=== PATIENT | female | born 1965 | race Caucasian/White ===

== ENCOUNTER 2016-12-09 11:50 | Emergency (ER) | payer OTHER ==
[~2016-12-09] VITALS: Ht 170.2 cm; Wt 90.7 kg
--- NOTE | 2016-12-09 12:05 | ED CARDIAC/CP/PALPITATIONS ---
History of Present Illness General Chief Complaint: Chest Pain Stated Complaint: CP Source: patient Exam Limitations: no limitations Vital Signs & Intake/Output Vital Signs & Intake/Output Vital Signs Date Time Temp Pulse Resp B/P Pulse O2 O2 Flow FiO2 Ox Delivery Rate 12/09 1706 97.4 70 18 122/64 98 Room Air Room Air 12/09 1604 97.1 71 18 118/62 98 12/09 1425 98.2 74 18 129/63 99 Room Air ED Intake and Output 12/10 0000 12/09 1200 Intake Total 0 Output Total 800 Balance -800 Intake, Oral 0 Output, Urine 800 Patient 200 lb Weight Allergies Coded Allergies: Penicillins (RASH 12/09/16) Reconcile Medications Cyclobenzaprine HCl 10 MG TABLET 1 TAB PO TID PRN SPASM Naproxen 500 MG TABLET 1 TAB PO BID PRN PAIN TAKE WITH FOOD Triage Note: PT TO ED C/O SUDDEN ONSET OF LEFT BACK AND LEFT CHEST PAIN 45 MINS AGO WHILE EATING BREAKFAST. STATES IT NOW RADIATES TO HER LEFT ARM. DENIES N/V/D. PT APPEARS ANXIOUS. NO SOB OR DIFF BREATHING NOTED. RA SATS 99%. DESCRIBES PAIN 10/10 SHARP AND SHOOTING. EKG DONE. PT TAKEN TO ROOM 12 VIA STRETCHER. Triage Nurses Notes Reviewed? yes Onset: Afternoon Duration: hour(s): (1) Timing: single episode today Quality/Severity: sharp, stabbing Location: left back Radiation: left chest Activities at Onset: STANDING IN THE KITCHEN Associated Symptoms: DIFFICULTY TAKING IN A DEEP BREATH HPI: This is a 50-year-old female with no past medical history other than previous hysterectomy presents to eat with sudden onset of severe left-sided beating radiating to her left chest. She states she was just going to but her toes and when she turned she felt severe sudden onset of pain. No nausea or vomiting. No diaphoresis. No palpitations. No history of similar symptoms. She's not been feeling ill recently. Denies any history of hypertension diabetes or high cholesterol. She is a nonsmoker nondrinker. No positive family history for coronary disease. She is status post hysterectomy on no hormone replacement. Recent prolonged travel or immobility. Past History Travel History Traveled to [place] past 21 day No Medical History Any Pertinent Medical History? none Surgical History Surgical History: hysterectomy, BLADDER SLING Psychosocial History What is your primary language Afghan Tobacco Use: Never used ETOH Use: denies use Illicit Drug Use: denies illicit drug use Family History Hx Contributory? No Review of Systems Review of Systems Constitutional: Denies: chills, fever. EENTM: Reports: no symptoms. Respiratory: Denies: cough, short of breath, sputum production. Cardiovascular: Reports: chest pain. Denies: palpitations. GI: Denies: abdominal pain, nausea, vomiting. Genitourinary: Reports: no symptoms. Musculoskeletal: Reports: back pain. Skin: Reports: no symptoms. Neurological/Psychological: Reports: no symptoms. Hematologic/Endocrine: Denies: bruising, bleeding, polyuria, polydipsia. Immunologic/Allergic: Reports: no symptoms. All Other Systems: Reviewed and Negative Physical Exam Physical Exam General Appearance: well developed/nourished, alert, awake, anxious, moderate distress Head: atraumatic, normal appearance Eyes: Bilateral: normal appearance, PERRL, EOMI. Ears, Nose, Throat: normal pharynx, normal ENT inspection Neck: normal inspection, supple, full range of motion Respiratory: normal breath sounds, chest non-tender, no respiratory distress Cardiovascular: regular rate/rhythm Peripheral Pulses: 2+ radial (R), 2+ radial (L) Gastrointestinal: normal bowel sounds, soft, non-tender Back: normal inspection, normal range of motion, TENDER OVER LEFT LOWER CHEST WALL Extremities: normal inspection, normal capillary refill, normal range of motion, no edema Neurologic/Psych: no motor/sensory deficits, awake, alert, oriented x 3, normal gait Skin: intact, normal color, warm/dry Core Measures ACS in differential dx? No Severe Sepsis Present: No Septic Shock Present: No Progress Differential Diagnosis: AMI, musculoskeletal pain, myocarditis, pericarditis, pneumonia, pneumothorax, pulmonary embolism Plan of Care: Orders Procedure Date/time Status Regular Diet 12/09 D Active TROPONIN LEVEL 12/09 1600 Complete EKG 12/09 1600 Active URINALYSIS 12/09 1418 Complete Laboratory Tests 12/09/16 1600: Troponin I < 0.01 12/09/16 1430: Urine Color STRAW, Urine Clarity CLEAR, Urine pH 6.5, Ur Specific [place] <= 1.005, Urine Protein NEG, Urine Ketones NEG, Urine Nitrite NEG, Urine Bilirubin NEG, Urine Urobilinogen 0.2, Ur Leukocyte Esterase NEG, Ur Microscopic EXAM NOT REQUIRED, Urine Hemoglobin NEG, Urine Glucose NEG EKG, TELE MONITOR, LABS, CXR ORDERED. IV TORADOL ORDERED. SUDDEN ONSET OF WORSENING LEFT CHEST PAIN, HR IN 120'S, PATIENT CRYING IN PAIN. PATIENT DIRECTLY FOR ANGIOGRAM TO RULE OUT DISSECTION. IV ZOFRAN, IV VALIUM ORDERED. ANGIOGRAM NEGATIVE FOR DISSECTION. PATIENT FEELING MUCH BETTER AFTER IV VALIUM. REPEAT EKG/TROPONIN ORDERED FOR 4 PM. (JESSICA OCONNOR,ALEXANDER) Diagnostic Imaging: Viewed by Me: Radiology Read, CT Scan. Discussed w/RAD: Radiology Read, CT Scan. Radiology Impression: EXAM TYPE: RAD - XRY-CHEST XRAY, PA AND LATERAL EXAMINATION: XR CHEST CLINICAL INFORMATION: Left-sided chest pain. COMPARISON: None. TECHNIQUE: PA and lateral views of the chest were obtained. FINDINGS: No focal consolidation, pulmonary edema, or pleural effusion. Normal cardiomediastinal silhouette. IMPRESSION: No acute cardiopulmonary findings. 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 Take the Naprosyn and Flexeril as directed. Prescriptions are [facility]. Return to the ER for any changing or worsening symptoms. Departure Forms: Customer Survey General Discharge Information Prescriptions: Current Visit Scripts Naproxen 1 TAB PO BID PRN PAIN #30 TAB TAKE WITH FOOD Cyclobenzaprine HCl 1 TAB PO TID PRN SPASM #20 TAB Critical Care Note Critical Care Note Critical Care Time: non-applicable
--- NOTE | 2016-12-09 13:08 | RADIOLOGY REPORT ---
EXAMINATION: XR CHEST CLINICAL INFORMATION: Left-sided chest pain. COMPARISON: None. TECHNIQUE: PA and lateral views of the chest were obtained. FINDINGS: No focal consolidation, pulmonary edema, or pleural effusion. Normal cardiomediastinal silhouette. IMPRESSION: No acute cardiopulmonary findings.
[2016-12-09 13:34] LABS: ABSOLUTE BASOPHIL COUNT 0 /CUMM (0.0-0.2); ABSOLUTE EOSINOPHIL COUNT 0.1 /CUMM (0.0-0.7); ABSOLUTE LYMPH COUNT 1.5 /CUMM (1.2-3.4); ABSOLUTE MONOCYTE COUNT 0.5 /CUMM (0.10-0.60); BASOPHIL % 0.5 % (0.0-2.0); GRANULOCYTE % 70.2 % (42.2-75.2); HEMATOCRIT 41.8 % (37-47); MEAN CORPUSCULAR HGB 29.1 PG (27.0-31.0); MEAN CORPUSCULAR HGB CONC 33.7 G/DL (33.0-37.0); MEAN CORPUSCULAR VOLUME 86.6 FL (81.0-99.0); MEAN PLATELET VOLUME 7.9 FL (7.4-10.4); PLATELET COUNT 265 /CUMM (130-400); RBC DISTRIBUTION WIDTH 13.4 % (11.5-14.5); RED BLOOD CELL CT 4.82 /CUMM (4.20-5.40); WHITE BLOOD CELL COUNT 7.2 /CUMM (4.8-10.8)
[2016-12-09 13:44] LABS: PTT 31 SEC (25-37)
--- NOTE | 2016-12-09 14:41 | CT SCAN REPORT ---
EXAMINATION: CT ANGIOGRAM CHEST, ABDOMEN AND PELVIS CLINICAL INFORMATION: Severe left-sided chest pain. COMPARISON: Plain radiographs 12/09/2016. TECHNIQUE: Multiple axial images were obtained through the chest without contrast. Subsequent contrast enhanced CT of the chest, abdomen and pelvis following the administration of 95 mL of Optiray 320 intravenous contrast. Sagittal and coronal reformats. Axial MIP volume renderings. DLP: 1339.09 mGy-cm. FINDINGS: FACILITIES ENGINEER: Clear lungs. No effusion. Nonobstructive gas pattern. Status post cholecystectomy. CHEST: Initial noncontrast examination shows a normal caliber thoracic aorta with no significant atherosclerotic disease. No mediastinal hematoma or pleural effusion. LUNGS: Minor dependent atelectasis. No mass or consolidation. No pneumothorax. Trace secretions in the trachea. THORACIC CT ANGIOGRAPHY: This is a nongated examination. The aorta enhances uniformly and is normal in caliber. Conventional three-vessel arch with uniform enhancement. Uniform enhancement of normal caliber descending thoracic aorta. No mediastinal hematoma. On levophase enhancement, no gross central pulmonary emboli are identified. However, this examination is not tailored to evaluation for pulmonary emboli and is limited in that regard. Cardiac structures are within normal limits. No mediastinal mass or adenopathy. No thyroid lesion. No esophageal lesion. No chest wall mass. No axillary or internal mammary lymphadenopathy. The patient is a candidate for screening mammography. ABDOMEN: VASCULAR: The abdominal aorta is normal in caliber and enhances uniformly. No aneurysm or dissection. No significant atherosclerotic disease noted. Branch vessels enhance normally including the celiac trunk, superior and inferior mesenteric arteries and renal arteries. Heterogeneous enhancement of the superior mesenteric vein and portal vein is felt to be a flow phenomenon related to late arterial phase imaging. LIVER: The liver appears enlarged measuring 21 cm in cephalocaudad dimension through the right lobe. No focal finding. GALLBLADDER AND BILE DUCTS: The patient is status post cholecystectomy. Bile ducts are within normal limits. SPLEEN: Spleen is normal in size. PANCREAS: There is a uniform pancreatic enhancement without focal finding or ductal dilation. No peripancreatic inflammation. ADRENAL GLANDS: Normal size without masses. KIDNEYS: There is symmetric renal function without hydronephrosis. No mass or calculus identified. No perinephric collection. RETROPERITONEUM: No mass, collection or adenopathy. GASTROINTESTINAL TRACT: Normal esophagus. Some food and fluid in the gastric lumen. Normal caliber small bowel. There is subtle mesenteric fat stranding more pronounced on the left. This is nonspecific, differential considerations include fibrosing mesenteritis, or a more acute mesenteric inflammation. The terminal ileum is normal in appearance. Normal appendix well seen in the right lower quadrant extending medially over the iliac vessels. Moderate colonic stool throughout. No evidence of colitis. No free air. No free fluid. Surgical clip noted anterior to the left lobe of the liver. No hernia. PELVIS: The bladder is distended with urine and normal in appearance. The distal ureters are not dilated. Bilateral ovarian cysts are within normal limits. The patient is status post hysterectomy. The vaginal cuff is normal in appearance. No pelvic free fluid or lymphadenopathy. OSSEOUS STRUCTURES: No acute fracture. Minor degenerative changes in the spine. Small bubbly lesion in the left sacrum possibly a subchondral cyst. IMPRESSION: 1. The thoracic and abdominal aorta is normal in caliber and enhances uniformly. No evidence of aneurysm or dissection. 2. There is subtle left-sided mesenteric fat stranding of uncertain etiology. 3. No bowel obstruction. No free air. 4. Hepatomegaly. 5. Cholecystectomy. 6. Hysterectomy. Incidental ovarian follicular cysts.
[2016-12-09] MEDS ORDERED: NAPROXEN500 M2 PO (16:56)
[2016-12-09] MEDS ORDERED: CYCLOBENZAPRINE10 M1 PO (16:56)
[2016-12-09 17:06] VITALS: BP 122/64
== END 2016-12-09 17:10 ==
LOC: ERH 11:50
PROVIDERS: Emergency Medicine
DX: R07.81 Pleurodynia (principal)
CPT/HCPCS: 74174; 81003; 93005; 93010; 96374; 96375; J1885; J2405; J3360